=== PATIENT | male | born 1990 | race Caucasian/White ===

== ENCOUNTER 2023-08-27 13:09 | Emergency (ER) | payer OTHER, SELFPAY ==
[2023-08-27 13:16] VITALS: BP 128/96
--- NOTE | 2023-08-27 13:49 | ED.GENMED ---
History of Present Illness
General
Chief Complaint: Musculo-Skeletal Complaint
Source: patient
Time Seen by Provider: 08/27/23 13:28
Travel History
Have you had any contact with someone who has COVID-19?: No
Do you have any symptoms of coronavirus? Fever > 100 degrees, chills, cough, shortness of breath, sore throat, loss of taste or smell, muscle aches, or headache?: No
History of Present Illness
History of Present Illness:
33-year-old male with no significant past medical history presenting to the emergency department for evaluation via EMS after he was working as a service delivery consultant for [employer] when he twisted his left ankle causing him to fall to the ground noting pain
along the lateral aspect of the ankle. Patient notes that he did not attempt to ambulate afterwards. Denies any previous history of injury or surgery. No other concerns at this time.
Past History
Past History
ED Past Medical History: None
ED Past Surgical History: None
Social History
Tobacco: Non-smoker
Alcohol: None
Drug: None
Personal:
Living: with family
Review of Systems
Review of Systems
All Other Systems: ROS reviewed and negative except as documented in HPI and ROS
Phy Exam
Physical Exam
Physical Exam:
GENERAL: Alert , in no apparent distress
EYE: conjunctiva clear
Head: Normocephalic atraumatic
NECK: Supple,
ENT: mmm.
LUNGS: no acute respiratory distress
NEUROLOGICAL: Alert and oriented
SKIN: Warm and dry, skin intact.
MUSCULOSKELETAL: Left lower extremity: Mild soft tissue swelling around the lateral malleolus with very mild tenderness at the distalmost aspect of this. There is no tenderness at the base of the fifth metatarsal. No proximal tib-fib tenderness.
Cap refill is less than 2 seconds. Sensation is grossly intact to light touch. Calcaneal tendon intact.
PSYCH: Normal and appropriate interaction.
Scores
Heart Failure Risk
Heart Failure Risk Score: Not Applicable
Heart Score for Chest Pain Patients
STEMI patient?: Not applicable
Withdrawal Assessment of Alcohol
Withdrawal Assessment Completed?: Not applicable
Course
Orders/Labs/Results
Orders:
Orders
08/27/23 13:18
Ankle, left 3 view CR [CR Ankle - Left Min 3 Views ] Urgent
Comment:
Reason For Exam: pain, trauma
08/27/23 13:52
Crutches-Treatment ONCE
Ortho Boot Left- Treatment ONCE
Short or tall?: Tall
Vital Signs
Initial and Last Documented VS:
Initial Vital Signs
Temp Pulse Resp BP Pulse Ox
98.1 F 78 18 128/96 98
08/27/23 13:16 08/27/23 13:16 08/27/23 13:16 08/27/23 13:16 08/27/23 13:16
Last Documented Vital Signs
Temp Pulse Resp BP Pulse Ox
98.1 F 78 18 128/96 98
08/27/23 13:16 08/27/23 13:16 08/27/23 13:16 08/27/23 13:16 08/27/23 13:16
MDM/Problems Addressed
Differential Diagnosis Includes:
Sprain, strain, fracture
MDM/Problems Addressed:
33-year-old male present emergency department for evaluation after injuring left ankle while twisting it at work. X-ray was ordered from triage and during my review there was a questionable nondisplaced fracture of the proximal fibula however
radiology did not feel that there was a fracture. I would agree based off the fact that patient did not have tenderness to palpation in this area. In the meantime we will place patient in a Ortho boot and crutches. Information for orthopedics was
provided. RICE recommendations discussed. Patient stable for discharge.
*Radiology
Radiology exam reviewed: preliminary read by ED provider (? non-displaced distal fib fx) and radiology read reviewed (no fx)
*Pulse Oximetry
Patient hypoxic: no
*Critical Care Note
Total Time (30-74mins, 75-104mins- exclusive of procedures): Not Applicable
ED Attending Note
-
Portions of this chart may have been created with voice recognition software.� Occasional wrong word or��sound alike� substitutions may have occurred due to the inherent limitations of voice recognition software.
Discharge Plan
Departure
Patient Disposition: Home (Routine Discharge)
Date of Disposition: 08/27/23
Time of Disposition: 13:50
Patient with high blood pressure during this ER visit?: No
Discharge Problem:
Left ankle sprain
Instructions: Ankle Sprain (DC)
Referrals:
Rodrick Alaniz MD [Active] - (Ortho - Call as needed)
Stand Alone Forms: Return to Work
== END 2023-08-27 15:31 | disposition home or self-care (01) ==
LOC: EMR 13:09
PROVIDERS: EMERGENCY PHYSICIAN Emergency Medicine; FAMILY PHYSICIAN Nurse Practitioner Adult Health
DX: S93.402A Sprain of unspecified ligament of left ankle, initial encounter (principal); W19.XXXA Unspecified fall, initial encounter; Y93.89 Activity, other specified; Y99.0 Civilian activity done for income or pay
CPT/HCPCS: 99283; 29515; 73610